=== PATIENT | male | born 1990 | race African-American/Black ===

== ENCOUNTER 2020-06-08 16:57 | Emergency (ER) | payer MEDICAID ==
[~2020-06-08] VITALS: Ht 182.9 cm; Wt 90.7 kg
[2020-06-08 17:40] VITALS: BP 131/75
[2020-06-08] MEDS ORDERED: ACETAMINOPHEN 325 MG TABLET PO ONE (18:00)
[2020-06-08] MEDS ORDERED: ACETAMINOPHEN ES 500 MG TABLET ONE (18:09)
--- NOTE | 2020-06-08 18:54 | NUR ---
Ankle Boot to Right LE by AMIRAH Pelaez. Patient discharged to home in stable condition. Written and verbal after care instructions given. Patient verbalizes understanding of instruction.
== END 2020-06-08 18:54 | disposition home or self-care (01) ==
LOC: ER 17:03
DX: M25.571 Pain in right ankle and joints of right foot (principal); Z60.2 Problems related to living alone; X50.1XXA Overexertion from prolonged static or awkward postures, initial encounter; Y93.61 Activity, american tackle football; Y92.321 Football field as the place of occurrence of the external cause; Y99.8 Other external cause status
CPT/HCPCS: 73610-TC